=== PATIENT | female | born 1975 | race African-American/Black ===

== ENCOUNTER 2017-11-13 00:11 | Emergency (ER) | payer OTHER ==
[2017-11-13] MEDS: PSEUDOEPHEDRINE 30 MG TAB PO (01:41)
== END 2017-11-13 02:03 | disposition home or self-care (01) ==
LOC: M ED 00:11
DX: R09.81 Nasal congestion (principal)
CPT/HCPCS: 99282

== ENCOUNTER 2019-05-25 00:36 | Emergency (ER) | payer OTHER ==
[~2019-05-25] VITALS: Ht 165.1 cm; Wt 118.7 kg
[2019-05-25] MEDS ORDERED: AUGM500T34 PO (03:24)
[2019-05-25] MEDS ORDERED: FLAG500T PO (03:24)
[2019-05-25 03:30] VITALS: BP 165/82
[2019-05-25] MEDS ORDERED: metroNIDAZOLE (FLAGYL) 500 MG TAB PO ONE (03:30)
[2019-05-25] MEDS ORDERED: AUGMENTIN 875 MG TAB PO ONE (03:30)
== END 2019-05-25 03:35 | disposition home or self-care (01) ==
LOC: M ED 00:36
DX: K05.30 Chronic periodontitis, unspecified (principal); Z88.1 Allergy status to other antibiotic agents; Z88.5 Allergy status to narcotic agent; Z88.8 Allergy status to other drugs, medicaments and biological substances

== ENCOUNTER 2019-06-23 15:05 | Emergency (ER) | payer OTHER ==
[~2019-06-23] VITALS: Ht 165.1 cm; Wt 119.2 kg
[~2019-06-23 15:05] MED LIST: AUGM500T34 PO; FLAG500T PO
--- NOTE | 2019-06-23 16:58 | REP ---
LEFT LOWER LEG, AP AND LATERAL: AP and lateral views of the left lower leg are performed. There is no acute fracture or dislocation. Small spur is seen of the inferior calcaneus. IMPRESSION: No acute fracture or dislocation. Electronically Signed by Kevin Arevalo MD 06/23/2019 08:02 P
[2019-06-23 18:15] VITALS: BP 138/82
== END 2019-06-23 18:16 | disposition home or self-care (01) ==
LOC: M ED 15:05
DX: S80.12XA Contusion of left lower leg, initial encounter (principal); W50.0XXA Accidental hit or strike by another person, initial encounter; Y92.018 Other place in single-family (private) house as the place of occurrence of the external cause; Z88.1 Allergy status to other antibiotic agents; Z88.5 Allergy status to narcotic agent; Z88.8 Allergy status to other drugs, medicaments and biological substances

== ENCOUNTER 2022-11-30 09:43 | Emergency (ER) | payer OTHER ==
[~2022-11-30] VITALS: Ht 165.1 cm; Wt 123.1 kg
[2022-11-30] MEDS ORDERED: ACET-683 PO (10:18)
[2022-11-30] MEDS ORDERED: ONDA4TAB6 PO (14:47)
[2022-11-30 15:04] VITALS: BP 130/74; TEMP 97.8; O2SAT 100
== END 2022-11-30 15:13 | disposition home or self-care (01) ==
LOC: M ED 09:43
DX: S06.0X0A Concussion without loss of consciousness, initial encounter (principal); W22.8XXA Striking against or struck by other objects, initial encounter; Y92.89 Other specified places as the place of occurrence of the external cause; Y93.89 Activity, other specified; Y99.0 Civilian activity done for income or pay; Z88.6 Allergy status to analgesic agent; Z88.5 Allergy status to narcotic agent; Z88.1 Allergy status to other antibiotic agents

== ENCOUNTER 2023-09-01 22:34 | Emergency (ER) | payer OTHER ==
[~2023-09-01] VITALS: Ht 162.6 cm; Wt 125.2 kg
[~2023-09-01 22:34] MED LIST changes: +ACET-683 PO; +ONDA4TAB6 PO
[2023-09-02 01:13] VITALS: BP 158/85; TEMP 97.2; O2SAT 99
== END 2023-09-02 01:14 | disposition home or self-care (01) ==
LOC: M ED 22:34
DX: S63.632A Sprain of interphalangeal joint of right middle finger, initial encounter (principal); Y92.511 Restaurant or cafe as the place of occurrence of the external cause; Y93.9 Activity, unspecified; Y99.9 Unspecified external cause status; I10 Essential (primary) hypertension; Z88.8 Allergy status to other drugs, medicaments and biological substances; Z79.1 Long term (current) use of non-steroidal anti-inflammatories (NSAID); Z79.899 Other long term (current) drug therapy